=== PATIENT | male | born 1995 | race Caucasian/White ===

== ENCOUNTER 2024-12-02 18:56 | Emergency (ER) | payer MEDICAID, SELFPAY ==
[2024-12-02 18:57] VITALS: BMI 28.7
[2024-12-02 19:28] VITALS: BP 139/81; PULSE 109; RESP 18; TEMP 36.6; O2SAT 97
[2024-12-02] MEDS: IBUPROFEN TAB 400 MG TABLET 800 MG PO (20:00)
--- NOTE | 2024-12-02 20:07 | XR_ITS ---
Examination: Fingers, right hand first and second digit Technique: AP, oblique, lateral views fingers right hand 3 views. Exam date and time: December 02, 20242015 hours INDICATIONS: Right thumb and second digit pain beginning 3 days ago FINDINGS: No fracture or dislocation. No opaque foreign body IMPRESSION: No fracture or dislocation If symptoms persist, consider elective MRI hand follow-up
--- NOTE | 2024-12-02 20:08 | EDNOTE_ITS ---
Upper Extremity Injury RME/HPI General Chief Complaint: Extremity Injury, Upper Stated Complaint: R) THUMP SWELLING/INJURY Time Seen by Provider: 12/02/24 19:34 Arrival date/time: 12/02/24 18:56 29M with history of drug use presents to ED with R thumb pain that radiates up wrist. Patient denies fall/trauma. Patient states a small bubble appears at the palmar tip of the R thumb and he's been rubbing it to try and get rid of it. Limitations: no limitations Related Data Allergies Allergy/AdvReac Type Severity Reaction Status Date / Time No Known Allergies Allergy Verified 12/02/24 18:59 Review of Systems Review of Systems Systems Reviewed: All systems reviewed, normal except as documented Constitutional Constitutional: Reports system reviewed and no additional complaints, except as documented, Denies fever(s) and Denies headache(s) ENT Ears, Nose, Mouth, and Throat: Denies disequilibrium and Denies headache(s) Cardiovascular Cardiovascular: Reports system reviewed and no additional complaints, except as documented, Denies chest pain and Denies dyspnea Respiratory Respiratory: Reports system reviewed and no additional complaints, except as documented, Denies cough and Denies dyspnea Gastrointestinal Gastrointestinal: Reports system reviewed and no additional complaints, except as documented, Denies abdominal pain, Denies nausea and Denies vomiting Musculoskeletal Musculoskeletal: Reports as per HPI, Reports arthralgias and Reports joint swelling Neurologic Neurologic: Reports system reviewed and no additional complaints, except as documented, Denies confusion, Denies disequilibrium and Denies headache(s) Psychiatric Psychiatric: Denies confusion Past Medical History Social History SMOKING STATUS: Current every day smoker ED Exam General Limitations: Present no limitations General appearance: Present alert and in no apparent distress Head Head exam: Present atraumatic Eye Eye exam: Present normal appearance, PERRL and EOMI ENT ENT exam: Present normal exam, normal oropharynx and mucous membranes moist Neck Neck exam: Present normal inspection, full ROM and trachea midline Chest Chest inspection: Present normal inspection and symmetric chest wall rise Respiratory Respiratory exam: Present normal lung sounds bilaterally Cardiovascular Cardiovascular exam: Present regular rate, normal rhythm and normal heart sounds Abdominal Exam Abdominal exam: Present soft and normal bowel sounds Expanded Upper Extremity Exam Hand exam: Present tenderness (R thumb), swelling and erythema Back Exam Back exam: Present normal inspection and full ROM Neurological Exam Neurological exam: Present alert, oriented X3 and CN II-XII intact Psychiatric Psychiatric exam: Present normal affect and normal mood Skin Skin exam: Present warm, dry, intact and normal color Course Quality Measures none Orders Category Date Time Status Insert IV NOW Care 12/02/24 21:09 Active Wound Care NOW Care 12/02/24 19:35 Active XR finger RT min 2V Stat Exams 12/02/24 20:07 Completed Blood Culture (Lab) Stat Lab 12/02/24 20:34 Received CBC Stat Lab 12/02/24 20:34 Completed CMP [Comprehensive Metabolic Panel] Stat Lab 12/02/24 20:34 Completed CRP [C-Reactive Protein] Stat Lab 12/02/24 20:34 Completed ESR [Sed Rate (ESR)] Stat Lab 12/02/24 20:34 Completed Lactate (Lactic Acid) Stat Lab 12/03/24 00:48 Results Procalcitonin Stat Lab 12/03/24 00:48 Completed HYDROcodone*/APAP 5/325 [Ty Ty 5/325] Med 12/02/24 20:13 Discontinued 1 tab PO X1 ONE Ibuprofen Tab [Motrin Tab] Med 12/02/24 19:54 Discontinued 800 mg PO X1 ONE Sodium Chloride 0.9% 1000 ml [Ns] 1,000 ml Med 12/03/24 01:20 Active IV 999 mls/hr Vancomycin Inj 1,000 mg Med 12/02/24 21:09 Discontinued Sodium Chloride 0.9% 250 ml [Ns] 250 ml IV X1 cefTRIAXone [Rocephin] Med 12/03/24 00:43 Discontinued 1,000 mg .ROUTE .STK-MED ONE cefTRIAXone [Rocephin] 1,000 mg Med 12/03/24 00:29 Pending Lidocaine 1% 20 ml [Xylocaine 1% 20 ML] 2.1 ml IV X1 cefTRIAXone/D5w 1gm IV premix [Rocephin/D5w 1gm IV Med 12/02/24 21:10 Discontinued premix] 1 gm in 50 ml IV X1 Vital Signs Vital signs: Vital Signs Temperature 98 F 12/02/24 19:28 Pulse Rate 109 H 12/02/24 19:28 Respiratory Rate 18 12/02/24 19:28 Blood Pressure 139/81 H 12/02/24 19:28 Pulse Oximetry (%) 97 12/02/24 19:28 Oxygen Delivery Method Room Air 12/02/24 19:28 O2 at 97% on RA and WNLs Extremity Injury MDM Narrative MDM Narrative:: 29M with history of drug use presents to ED with R thumb pain that radiates up wrist. Patient denies fall/trauma. Patient states a small bubble appears at the palmar tip of the R thumb and he's been rubbing it to try and get rid of it. Physical exam reveals white callus/bubble on palmar tip of R thumb. Pain/tenderness out of proportion of R thumb. There is also swelling and mild redness. Cap refill appears to be normal. Pain with passive and active ROM, which is limited. Patient is afebrile, alert, but appears to be in pain. XR no acute abnormalities. WBC 19k. Lactate 3.3. ESR 26. CMP unremarkable. Likely flexor tenosynovitis vs early compartment syndrome. Spoke to transfer center at [facility], where Dr. Velasquez ortho accepts patient. Patient data External records reviewed:: [facility] previous records Clinical information provided by:: patient Social determinants that could affect healthcare access:: substance use Patient has the following chronic illnesses:: none How is presenting disease/condition affected by chronic disease/condition?: exacerbated by Evaluation data The following diagnostics were reviewed and interpreted by me:: lab results and radiology exam(s) Lab and/or radiology exams considered but not ordered:: ordered Interpretation Summary: above Medications / Prescriptions Medications or Prescriptions considered but not ordered:: ordered Medication administrations:: Medication Administration History Ceftriaxone Sodium 1,000 mg/ (Lidocaine HCl 2.1 ml) 0 mg IV X1 ONE Stop: 12/03/24 00:30 Sodium Chloride (Ns) 1,000 mls @ 999 mls/hr IV .Q1H1M ONE Stop: 12/03/24 02:20 Last Admin: 12/03/24 01:29 Dose: 999 mls/hr Documented By: LB Discontinued Medications Hydrocodone Bitart/Acetaminophen (Hydrocodone/Apap 5/325 Tablet) 1 tab PO X1 ONE Stop: 12/02/24 20:14 Last Admin: 12/02/24 20:42 Dose: 1 tab Documented By: Ceftriaxone Sodium (Ceftriaxone Sod Inj 1,000 Mg Vial) Confirm Administered Dose 1,000 mg .ROUTE .STK-MED ONE Stop: 12/03/24 00:44 Last Admin: 12/03/24 01:22 Dose: Not Given Documented By: CVL Non-Admin Reason: Duplicate Medication on eMAR Vancomycin HCl 1,000 mg/ (Sodium Chloride) 250 mls @ 150 mls/hr IV X1 ONE Stop: 12/02/24 22:48 Last Infusion: 12/03/24 00:18 Dose: Infused Documented By: Admin: 12/02/24 22:37 Dose: 150 mls/hr Documented By: SAMIRA Ceftriaxone Sodium/Dextrose (Rocephin/D5w 1gm Iv Premix) 1 gm in 50 mls @ 100 mls/hr IV X1 ONE Stop: 12/02/24 21:39 Last Admin: 12/03/24 01:00 Dose: 100 mls/hr Documented By: SAMIRA Ibuprofen (Ibuprofen Tab 400 Mg Tablet) 800 mg PO X1 ONE Stop: 12/02/24 19:55 Last Admin: 12/02/24 20:00 Dose: 800 mg Documented By: above Consultations Consultation(s) initiated? (list below): Yes Diagnosis Upper Extremity Injury Differential Diagnosis: sprain and strain of wrist, fracture of wrist, finger sprain, dislocation of finger, Colles' fracture, fracture of hand and other (flexor tenosynovitis, compartment syndrome, cellulitis) Most likely diagnosis given after review of the tests above:: flexor tenosynovitis Admission Indicated Admission indicated?: not indicated Admission Request Was there a request for admission?: No Disposition Plan Disposition Plan: Transfer Discharge Plan Plan Patient Disposition: [facility] Facility Pt Being Transferred to: [facility] Service Needed for Transfer: Plastic Surgery Prescriptions/Referrals Referrals: No Primary/Family,Physician [Primary Care Provider] - In 1 week Problem List Clinical Impression: Flexor tenosynovitis of thumb Patient/Caregiver Discharge Instructions Print Language: Arabic Stand Alone Forms: Jennifer Award Info., Patient Portal Info Letter
[2024-12-02] MEDS: HYDROcodone/APAP 5/325 TABLET 1 TAB PO (20:42)
[2024-12-02 21:00] LABS: Basophils # (Auto) 0.1 Thou/mm3 (0.0-0.2); Basophils % (Auto) 0 % (0-2.5); Eosinophils # (Auto) 0.1 Thou/mm3 (0.0-0.5); Eosinophils % (Auto) 1 % (0-10); Hematocrit 43.9 % (41.0-53.0); Hemoglobin 15.4 g/dL (13.5-16.0); Immature Granulocytes % (Auto) 0 % (0-0); Immature Granulocytes Auto 0.08 Thou/mm3 (0.00-0.00); Lymphocytes # (Auto) 3.4 Thou/mm3 (1.0-4.8); Lymphocytes % (Auto) 18 % (10-50); Mean Corpuscular HGB Conc 35.1 g/dl (31.0-37.0); Mean Corpuscular Hemoglobin 30.8 pg (25.0-35.0); Mean Corpuscular Volume 88 fL (80-100); Monocytes # (Auto) 1.2 Thou/mm3 (0.0-0.8); Monocytes % (Auto) 6 % (0-12); Neutrophils # (Auto) 14.2 Thou/mm3 (1.8-7.7); Neutrophils % (Auto) 75 % (37-80); Nucleated Red Blood Cell % 0 /100 WBC (0); Platelet Count 305 Thou/mm3 (140-440); RDW Standard Deviation 40.1 fL (35.1-43.9)
[2024-12-02 21:44] LABS: Sed Rate (ESR) 26 mm/hr (0-15)
[2024-12-02 22:13] VITALS: BP 139/75; PULSE 90; RESP 18; TEMP 36.8; O2SAT 98
[2024-12-02] MEDS: Vancomycin Inj 1,000 MG in SODIUM CHLORIDE 0.9% 250 ML 250 ML 150 MG IV (22:37)
--- NOTE | 2024-12-02 23:00 | PC.NURSE ---
Tip of rt thumb hard/tender to touch. Pt stated that it has been going on for more then a week. Rt radial pulse palpable and strong. Denies any numbness.
[2024-12-02 23:07] LABS: Alanine Aminotransferase 39 U/L (10-49); Albumin, Serum 4.1 gm/dL (3.5-5.0); Albumin/Globulin Ratio 1.2 (1.2-2.2); Alkaline Phosphatase 90 U/L (46-116); Anion Gap 10 (7-16); Aspartate Amino Transferase 31 U/L (0-34); BUN/Creatinine Ratio 11 Ratio (12-20); Bilirubin,Total 0.4 mg/dL (0.3-1.2); Blood Urea Nitrogen 10 mg/dL (9-23); Calcium 10.2 mg/dL (8.3-10.6); Calcium (Corrected) 10.2 mg/dL (8.5-10.1); Carbon Dioxide 26.2 mMol/L (20.0-31.0); Chloride 102 mMol/L (98-107); Creatinine (Component) 0.9 mg/dL (0.6-1.3); Globulin 3.5 gm/dL (2.3-3.5); Glucose 118 mg/dL (74-106); Osmolality,Calculated 275 (275-295); Potassium 4.5 mMol/L (3.4-5.1); Sodium 138 mMol/L (136-145); Total Protein 7.6 gm/dL (5.7-8.2); eGFR > 60 See Note
--- NOTE | 2024-12-03 00:03 | PC.NURSE ---
FAXED INFORMATION TO [facility]ULIS[facility]OOKER FROM TRANSFER CENTER SAID THEY DNT HAVE HAND SURGOEN.
[2024-12-03 00:22] VITALS: BP 146/83; PULSE 96; RESP 18; TEMP 36.8; O2SAT 97
[2024-12-03 00:54] LABS: C-Reactive Protein 0.6 mg/dL (0.0-0.9)
[2024-12-03] MEDS: cefTRIAXone/D5w 1gm IV premix 1 GM/50 ML BAG IV (01:00)
[2024-12-03 01:02] VITALS: BP 146/84; PULSE 78; RESP 18; O2SAT 98
[2024-12-03 01:03] LABS: Lactate (Lactic Acid) 3.3 mMol/L (0.4-2.0)
--- NOTE | 2024-12-03 01:05 | PC.NURSE ---
Sleeping no distress noted. Resp easy and even. Pt's escort at bedside.
--- NOTE | 2024-12-03 01:12 | PC.NURSE ---
FAXED INFORMATION TO [facility] AND CALLED TRANSFER CENTER, THEY WILL CALL BACK.
[2024-12-03] MEDS: SODIUM CHLORIDE 0.9% 1000 ML 1,000 ML 999 ML IV (01:29)
[2024-12-03 01:44] LABS: Procalcitonin 0.04 ng/ml (0.0-0.49)
[2024-12-03 02:00] VITALS: BP 145/53; PULSE 90; RESP 18; O2SAT 98
[2024-12-03 03:01] VITALS: BP 145/87; PULSE 80; RESP 18; O2SAT 96
[2024-12-03] MEDS: KETOROLAC INJ 30 MG/ML VIAL IVP (03:05)
[2024-12-03 03:34] VITALS: BP 144/84; PULSE 82; RESP 18; TEMP 36.7; O2SAT 96
[2024-12-03 04:04] LABS: Reflex Lactate? Y
== END 2024-12-03 03:48 | disposition short-term general hospital (02) ==
PROVIDERS: Physician Assistant; Emergency Provider Emergency Medicine
DX: M65.841 Other synovitis and tenosynovitis, right hand (principal)
CPT/HCPCS: 36415; 73140; 80053; 83605; 84145; 85025; 85652; 86140; 87040; 96361; 96365; 96367; 96375; 99285; J0696; J1885; J3371; J7030; J7050; A9270